=== PATIENT | female | born 1990 | race African-American/Black ===

== ENCOUNTER 2016-08-10 15:06 | Emergency (ER) | payer MEDICAID, OTHER ==
--- NOTE | 2016-08-10 16:41 | ER Document Report ---
ED GI/ - General Chief Complaint: Urinary Problem Stated Complaint: POSSIBLE UTI Mode of Arrival: Ambulatory Information source: Patient TRAVEL OUTSIDE OF THE [place] IN LAST 30 DAYS: No - HPI Patient complains to provider of: Dysuria Onset: Yesterday Notes: 08/10/16 16:39 Patient arrives with complaints of dysuria and frequent urination. Patient is 21 weeks , she states that she thought she was having a urinary tract infection a few weeks ago, she contacted her physician who wrote her for amoxicillin. She states that amoxicillin typically does not help her urinary tract infections. States that she also always gets a yeast infection after being on antibiotics, but the physician did not write her for in the Diflucan. She states that she was feeling somewhat better until yesterday she started having dysuria and urinary frequency again. She does complain of a mild odor. She denies any vaginal bleeding. She denies any abdominal pain. She denies any nausea, vomiting, diarrhea. No flank pain. No chest pain or shortness of breath. She denies any rashes. She has no other complaints at this time. - Related Data Allergies/Adverse Reactions: sulfamethoxazole [From Septra] Allergy (Mild, Verified 08/10/16 15:30) trimethoprim [From Septra] Allergy (Mild, Verified 08/10/16 15:30) Past Medical History - Social History Smoking Status: Unknown if Ever Smoked Family History: Reviewed & Not Pertinent Patient has suicidal ideation: No Patient has homicidal ideation: No - Past Medical History Cardiac Medical History: Denies: Hx Coronary Artery Disease, Hx Heart Attack, Hx Hypertension Pulmonary Medical History: Denies: Hx Asthma, Hx Bronchitis, Hx COPD, Hx Pneumonia Neurological Medical History: Denies: Hx Cerebrovascular Accident, Hx Seizures Renal/ Medical History: Denies: Hx Peritoneal Dialysis Musculoskeltal Medical History: Denies Hx Arthritis - Immunizations Hx Diphtheria, Pertussis, Tetanus Vaccination: Yes Review of Systems - Review of Systems -: Yes All other systems reviewed and negative Physical Exam - Vital signs Vitals: Temp Pulse Resp BP Pulse Ox 98.9 F 90 16 133/86 H 98 08/10/16 15:30 08/10/16 15:30 08/10/16 15:30 08/10/16 15:30 08/10/16 15:30 - Notes Notes: GENERAL: alert, cooperative, nontoxic, no distress. HEAD: normocephalic, atraumatic EYES: conjunctiva pink without discharge, no external redness or swelling. EARS: no external swelling, no external redness NOSE: atraumatic, no external swelling MOUTH/THROAT: mucous membranes moist and pink, posterior pharynx without erythema, swelling, exudate. No trismus or drooling. NECK: soft, supple, full range of motion, no meningismus. CHEST: no distress, lungs clear and equal throughout. No wheezing, rales, rhonchi. CARDIAC: regular rate and rhythm, no murmur, normal capillary refill, normal pulses. No peripheral edema noted. ABDOMEN: Soft, nontender. Gravid abdomen BACK: full range of motion, no CVA tenderness. EXTREMITIES: full range of motion of all extremities. No redness, no swelling. NEURO: alert and oriented -3, no focal deficits, full range of motion of all extremities. PYSCH: appropriate mood, affect. Patient is cooperative. SKIN: pink, warm, dry, no rash. - Genitourinary Notes: Declined at this time. Course - Re-evaluation Re-evalutation: 08/10/16 16:41 Patient declines a pelvic exam at this time. 08/10/16 17:26 Patient is nontoxic. This time. Urine shows yeast and signs of urinary tract infection. The patient has no fever and no CVA tenderness. She has no abdominal tenderness. Patient will be placed on Macrobid. The patient will have a urine culture obtained. Patient was instructed to use [id number] Monistat for the yeast infection as Diflucan's safety during is unclear. I instructed her to follow up with her RADIOLOGIST [facility] OF [facility] at the next available appointment for reevaluation. Follow-up sooner for increased pain, fever, persistent vomiting, I fever, or any further concerns. The patient is noted to have elevated blood pressure during today's emergency department visit. The patient was informed of this finding. The patient was instructed that this may be related to pre-hypertension and requires further evaluation with a primary care provider. The patient has no hypertensive symptoms at this time. The patient's emergency department workup and current diagnosis were explained to the patient and or family. Follow-up instructions were provided. Medications if prescribed were discussed. Instructions for when to return to the emergency department including specific worrisome symptoms were discussed with the patient and/or family. - Vital Signs Vital signs: Temp Pulse Resp BP Pulse Ox 98.9 F 90 16 133/86 H 98 08/10/16 15:30 08/10/16 15:30 08/10/16 15:30 08/10/16 15:30 08/10/16 15:30 - Laboratory Laboratory results interpreted by me: 08/10/16 16:45 Urine Protein 100 H Urine Glucose (UA) >=500 H Urine Blood MODERATE H Ur Leukocyte Esterase LARGE H Discharge - Discharge Clinical Impression: Yeast infection involving the vagina and surrounding area Urinary tract infection Qualifiers: Urinary tract infection type: acute cystitis Hematuria presence: without hematuria Qualified Code(s): N30.00 - Acute cystitis without hematuria Condition: Stable Disposition: HOME, SELF-CARE Instructions: Nitrofurantoin ([facility]), Urinary Tract Infection ([facility]), Vaginal Yeast Infection ([facility]) Additional Instructions: Take medications as prescribed. Drink lots of fluids. Use [id number] Monistat for yeast infection. Follow up with her RADIOLOGIST [facility] next week for reevaluation. Follow-up sooner for increased pain, fever, abdominal pain, nausea, vomiting, flank pain, or any further concerns. Your blood pressure was elevated during today's visit. Have this rechecked with your doctor. Prescriptions: Nitrofurantoin Monohyd/M-Cryst [Macrobid 100 mg Capsule] 100 mg PO BID #10 capsule Forms: Elevated Blood Pressure
[2016-08-10 17:15] LABS: APPEARANCE,URINE TURBID; BILIRUBIN,URINE NEGATIVE (NEGATIVE); GLUCOSE, URINE >=500 mg/dL (NEGATIVE); KETONES,URINE NEGATIVE (NEGATIVE); LEUKOCYTE ESTERASE,URINE LARGE (NEGATIVE); NITRITE,URINE NEGATIVE (NEGATIVE); PROTEIN,URINE 100 mg/dL (NEGATIVE); URINE SPECIFIC GRAVITY 1.015; UROBILINOGEN,URINE NEGATIVE mg/dL (<2.0)
[2016-08-10 17:35] VITALS: BP 111/67
== END 2016-08-10 17:35 | disposition home or self-care (01) ==
LOC: ER 15:06
DX: O23.12 Infections of bladder in pregnancy, second trimester (principal); O98.812 Other maternal infectious and parasitic diseases complicating pregnancy, second trimester; B37.3 Candidiasis of vulva and vagina; O26.892 Other specified pregnancy related conditions, second trimester; R03.0 Elevated blood-pressure reading, without diagnosis of hypertension; Z3A.21 21 weeks gestation of pregnancy; Z88.1 Allergy status to other antibiotic agents; O23.02 Infections of kidney in pregnancy, second trimester
CPT/HCPCS: 81001; 87086; 87088; 87186; 99283

== ENCOUNTER 2016-10-17 10:42 | Emergency (ER) | payer MEDICAID ==
--- NOTE | 2016-10-17 11:12 | ER Document Report ---
ED Medical Screen (RME) - General Chief Complaint: Shortness Of Breath Stated Complaint: DIFFICULTY BREATHING Time Seen by Provider: 10/17/16 11:05 Notes: 25-year-old female patient is 31 weeks . 2 hours ago had sudden onset of dyspnea. She is breathing quite rapidly. Lungs are clear. She has no history of anxiety disorder or respiratory problems in the past. No recent travel. Does not smoke. I have greeted and performed a rapid initial assessment of this patient. A comprehensive ED assessment and evaluation of the patient, analysis of test results and completion of the medical decision making process will be conducted by additional ED providers. TRAVEL OUTSIDE OF THE [place] IN LAST 30 DAYS: No - Related Data Allergies/Adverse Reactions: sulfamethoxazole [From Septra] Allergy (Mild, Verified 10/17/16 10:46) trimethoprim [From Septra] Allergy (Mild, Verified 10/17/16 10:46) Past Medical History - Past Medical History Cardiac Medical History: Denies: Hx Coronary Artery Disease, Hx Heart Attack, Hx Hypertension Pulmonary Medical History: Denies: Hx Asthma, Hx Bronchitis, Hx COPD, Hx Pneumonia Neurological Medical History: Denies: Hx Cerebrovascular Accident, Hx Seizures Renal/ Medical History: Denies: Hx Peritoneal Dialysis Musculoskeltal Medical History: Denies Hx Arthritis - Immunizations Hx Diphtheria, Pertussis, Tetanus Vaccination: Yes
--- NOTE | 2016-10-17 12:02 | ER Document Report ---
ED Respiratory Problem - General Chief Complaint: Shortness Of Breath Stated Complaint: DIFFICULTY BREATHING Time Seen by Provider: 10/17/16 11:05 Notes: The patient is a 25-year-old female, 31 weeks , presents with 2 hours of sudden onset shortness of breath. She was at rest when this started. No history of asthma or panic attacks. She denies leakage of fluids, abdominal pain or vaginal bleeding. Denies fevers, cough, hemoptysis, leg swelling, chest pain, back pain, recent travel or urinary symptoms. TRAVEL OUTSIDE OF THE [place] IN LAST 30 DAYS: No - Related Data Allergies/Adverse Reactions: sulfamethoxazole [From ] Allergy (Mild, Verified 10/17/16 10:46) trimethoprim [From Decra] Allergy (Mild, Verified 10/17/16 10:46) Past Medical History - General Information source: Patient - Social History Smoking Status: Never Smoker Family History: Reviewed & Not Pertinent Patient has suicidal ideation: No Patient has homicidal ideation: No - Past Medical History Cardiac Medical History: Denies: Hx Coronary Artery Disease, Hx Heart Attack, Hx Hypertension Pulmonary Medical History: Denies: Hx Asthma, Hx Bronchitis, Hx COPD, Hx Pneumonia Neurological Medical History: Denies: Hx Cerebrovascular Accident, Hx Seizures Renal/ Medical History: Denies: Hx Peritoneal Dialysis Musculoskeltal Medical History: Denies Hx Arthritis - Immunizations Hx Diphtheria, Pertussis, Tetanus Vaccination: Yes Review of Systems - Review of Systems Notes: REVIEW OF SYSTEMS: CONSTITUTIONAL: -fevers, -chills EENT: -eye pain, -difficulty swallowing, -nasal congestion CARDIOVASCULAR:-chest pain, -syncope. RESPIRATORY: -cough, +SOB GASTROINTESTINAL: -abdominal pain, - nausea, -vomiting, -diarrhea GENITOURINARY: -dysuria, -hematuria MUSCULOSKELETAL: -back pain, -neck pain SKIN: -rash or skin lesions. HEMATOLOGIC: -easy bruising or bleeding. LYMPHATIC: -swollen, enlarged glands. NEUROLOGICAL: -altered mental status or loss of consciousness, -headache, - neurologic symptoms PSYCHIATRIC: -anxiety, -depression. ALL OTHER SYSTEMS REVIEWED AND NEGATIVE. Physical Exam - Vital signs Vitals: Pulse Resp 90 14 10/17/16 10:50 10/17/16 10:50 - Notes Notes: PHYSICAL EXAMINATION: GENERAL: Well-appearing, well-nourished and in no acute distress. HEAD: Atraumatic, normocephalic. EYES: Pupils equal round and reactive to light, extraocular movements intact, sclera anicteric, conjunctiva are normal. ENT: nares patent, oropharynx clear without exudates. Moist mucous membranes. NECK: Normal range of motion, supple without lymphadenopathy LUNGS: Tachypneic, labored breathing, breath sounds clear to auscultation bilaterally and equal. No wheezes rales or rhonchi. HEART: Regular rate and rhythm without murmurs ABDOMEN: Soft, nontender, normoactive bowel sounds. No guarding, no rebound. No masses appreciated. EXTREMITIES: Normal range of motion, no pitting or edema. No cyanosis. NEUROLOGICAL: Cranial nerves grossly intact. Normal speech, normal gait. Normal sensory and motor exams. PSYCH: Normal mood, normal affect. SKIN: Warm, Dry, normal turgor, no rashes or lesions noted. Course - Re-evaluation Re-evalutation: High concern for PE with sudden onset of shortness of breath, tachypnea, and . Spoke to patient about risks and benefits of CT scan and she understands. She consents to CTA to assess for PE. CTA does not show any evidence of PE. Rest of labs are unremarkable. She is resting comfortably and is now in no acute respiratory distress. Pt on the monitor is breathing 18 times/minute for several hours. When I enter the room, she begins to increase her breathing to 27 times/min. This is less likely an acute medical cause for the tachypnea. Will discharge patient home with follow- up at OB. Given strict return precautions and she understands. - Vital Signs Vital signs: Temp Pulse Resp BP Pulse Ox 90 29 H 124/84 99 10/17/16 15:00 10/17/16 15:01 10/17/16 15:00 10/17/16 15:01 - Laboratory Result Diagrams: 10/17/16 12:05 10/17/16 12:05 Laboratory results interpreted by me: 10/17/16 10/17/16 10/17/16 12:05 12:05 12:05 RBC 3.56 L Hgb 10.8 L Hct 32.4 L D-Dimer 1.11 H Carbon Dioxide 21 L Creatinine 0.47 L Glucose 111 H - Diagnostic Test Radiology reviewed: Image reviewed, Reports reviewed Radiology results interpreted by me: CTA Chest: No PE. - EKG Interpretation by Me EKG shows normal: Sinus rhythm, [place], Intervals, QRS Complexes, ST-T Waves Rate: Normal Discharge - Discharge Clinical Impression: Dyspnea Qualifiers: Dyspnea type: shortness of breath Qualified Code(s): R06.02 - Shortness of breath Condition: Stable Disposition: HOME, SELF-CARE Additional Instructions: SHORTNESS OF BREATH OR DYSPNEA: You were evaluated for shortness of breath, or dyspnea. Dyspnea has many causes, and some are more serious than others. Sometimes it's impossible to diagnose the cause of dyspnea with the tests that are available on an emergency basis. Based on our evaluation today, you do not need hospitalization now. We found no evidence of pneumonia, collapsed lung, blood clots in the lung, tumors , or heart failure. Causes of non-specific dyspnea can include asthma or bronchospasm, hyperventilation, emotional distress, heart disease, emphysema, fibrosis of the lung, and stiffness of the chest wall. In healthy individuals with a single episode, it's sometimes reasonable to do nothing but wait to see if the problem occurs again. Additional tests used to evaluate dyspnea can include cardiac stress testing, echocardiography, pulmonary function testing, CAT scan of the chest, bronchoscopy or pulmonary biopsy. Return if shortness of breath persists or worsens, or if you develop chest pain, fever, cough, confusion, or fainting. NORMAL EXAM AND WORKUP: At this time, your examination and workup show no significant abnormality. No significant abnormal physical findings were noted. All laboratory, EKG, and imaging (x-ray, CT scans, ultrasound) studies that were ordered show no significant abnormality. Although your examination and all studies that were ordered showed no significant abnormal finding, there are no examinations and no studies that are 100% accurate. There is always the possibility that some abnormality could exist and not be detected with physical examination or within the limits and capabilities of laboratory and other studies. You should return or follow up as you were instructed on your visit today for further evaluation if your symptoms do not resolve. FOLLOW-UP CARE: If you have been referred to a physician for follow-up care, call the physician s office for an appointment as you were instructed or within the next two days. If you experience worsening or a significant change in your symptoms, notify the physician immediately or return to the Emergency Department at any time for re-evaluation. Referrals: GELY ALLRED MD [Primary Care Provider] - Follow up as needed ONEIL MERCHANT MD [ACTIVE STAFF] - Follow up as needed
[2016-10-17 12:25] LABS: ABSOLUTE EOSINOPHILS # (AUTO) 0.1 10^3/uL (0.0-0.6); ABSOLUTE LYMPHOCYTES (AUTO) 1.1 10^3/uL (0.5-4.7); ABSOLUTE MONOCYTES (AUTO) 0.5 10^3/uL (0.1-1.4); ABSOLUTE NEUT (AUTO) 4.7 10^3/uL (1.7-8.2); BASOPHILS % (AUTO) 0.2 % (0-2); EOSINOPHILS % (AUTO) 2.1 % (0-6); HEMATOCRIT 32.4 % (36.0-47.0); HEMOGLOBIN 10.8 g/dL (12.0-15.5); MEAN CORPUSCULAR HEMOGLOBIN 30.3 pg (27.0-33.4); MEAN CORPUSCULAR HGB CONC 33.3 g/dL (32.0-36.0); MEAN CORPUSCULAR VOLUME 91 fl (80-97); MONOCYTES % (AUTO) 7.4 % (3-13); RED BLOOD COUNT 3.56 10^6/uL (3.72-5.28); RED CELL DISTRIBUTION WIDTH 12.5 % (11.5-14.0); SEGMENTED NEUTROPHILS % (AUTO) 73.3 % (42-78); WHITE BLOOD COUNT 6.4 10^3/uL (4.0-10.5)
--- NOTE | 2016-10-17 12:30 | RADIOLOGY REPORT (SQ) ---
EXAM DESCRIPTION: CHEST SINGLE VIEW portable COMPLETED DATE/TIME: 10/17/2016 12:17 pm REASON FOR STUDY: dyspnea COMPARISON: 2008 NUMBER OF VIEWS: One view. TECHNIQUE: Single frontal radiographic view of the chest acquired. LIMITATIONS: None. FINDINGS: LUNGS AND PLEURA: No opacities, masses or pneumothorax. No pleural effusion. MEDIASTINUM AND HILAR STRUCTURES: No masses. Contour normal. HEART AND VASCULAR STRUCTURES: Heart is prominent, but stable. BONES: No acute findings. HARDWARE: None in the chest. OTHER: No other significant finding. IMPRESSION: Nothing acute from prior examination. TECHNICAL DOCUMENTATION: JOB ID: [id number] 1584 [employer]- All Rights Reserved
[2016-10-17 12:42] LABS: ALANINE AMINOTRANSFERASE 28 U/L (9-52); ALBUMIN 3.5 g/dL (3.5-5.0); ALKALINE PHOSPHATASE 98 U/L (38-126); ANION GAP 9 (5-19); ASPARTATE AMINO TRANSFERASE 18 U/L (14-36); BILIRUBIN,DIRECT 0.2 mg/dL (0.0-0.4); BILIRUBIN,TOTAL 0.6 mg/dL (0.2-1.3); BLOOD UREA NITROGEN 8 mg/dL (7-20); CALCIUM 9.1 mg/dL (8.4-10.2); CARBON DIOXIDE 21 mmol/L (22-30); CHLORIDE 107 mmol/L (98-107); CREATININE RESULT 0.47 mg/dL (0.52-1.25); GLUCOSE 111 mg/dL (75-110); POTASSIUM 3.8 mmol/L (3.6-5.0); SODIUM 137.1 mmol/L (137-145); TOTAL PROTEIN 6.8 g/dL (6.3-8.2)
--- NOTE | 2016-10-17 14:44 | RADIOLOGY REPORT (SQ) ---
EXAM DESCRIPTION: CTA CHEST COMPLETED DATE/TIME: 10/17/2016 2:23 pm REASON FOR STUDY: SOB, , tachypneic, elevated d-dimer COMPARISON: Chest films 10/17/2016 TECHNIQUE: CT scan of the chest performed using helical scanning technique with dynamic intravenous contrast injection. Images reviewed with lung, soft tissue and bone windows. Reconstructed coronal and sagittal MPR images reviewed. Additional 3 dimensional post-processing performed to develop Maximal Intensity Projection images (NE P). All images stored on PACS. Patient is 31 weeks . The abdomen and pelvis was shielded with lead All CT scanners at this facility use dose modulation, iterative reconstruction, and/or weight based d osing when appropriate to reduce radiation dose to as low as reasonably achievable (ALARA). [facility]: Dose Right [facility]: CareDose [facility]: Dose Right [facility]: Teradose 4D [facility]: StepsAway CONTRAST TYPE AND DOSE: contrast/concentration: Isovue 370.00 mg/ml; Total Contrast Delivered: 72.0 ml; Total Saline Delivered: 100.0 ml RENAL FUNCTION: Creatinine 0.47 RADIATION DOSE: Up-to-date CT equipment and radiation dose reduction techniques were employed. CTDIv ol: 13.2 - 14.4 mGy. DLP: 362 mGy-cm. . LIMITATIONS: None. FINDINGS: LUNGS AND PLEURA: No masses, infiltrates, pneumothorax. No pleural effusions, calcificati ons. AORTA AND GREAT VESSELS: No aneurysm or dissection. HEART: No pericardial effusion. Mild cardiomegaly PULMONARY ARTERIES: No emboli visualized in the main pulmonary arteries or the segmental branches. HILAR AND MEDIASTINAL STRUCTURES: No identified masses or abnormal nodes. HARDWARE: None in the chest. UPPER ABDOMEN: No significant findings. Limited exam. THYROID AND OTHER SOFT TISSUES: No masses. No adenopathy. BONES: No acute or significant finding. 3D MIPS: Confirm above findings. OTHER: No other significant finding. IMPRESSION: NORMAL CTA OF THE CHEST. NO PULMONARY EMBOLI. TECHNICAL DOCUMENTATION: JOB ID: [id number] Quality ID # [id number]: Final reports with documentation of one or more dose reduction techniques (e.g., Au tomated exposure control, adjustment of the mA and/or kV according to patient size, use of iterative reconstruction technique) 2010 [employer]- All Rights Reserved
[2016-10-17 15:07] VITALS: BP 124/84
== END 2016-10-17 15:31 | disposition home or self-care (01) ==
LOC: ER 10:42
DX: R06.02 Shortness of breath (principal); Z3A.31 31 weeks gestation of pregnancy
CPT/HCPCS: 36415; 71010; 71275; 80053; 85025; 85379; 99285

== ENCOUNTER 2016-11-30 16:40 | Outpatient (CLI) | payer MEDICAID ==
--- NOTE | 2016-11-30 17:26 | Non Stress Test Report ---
Non Stress Test Datetime Report Generated by CPN: 11/30/2016 17:26 DEMOGRAPHIC EGA NST: 37.4 INDICATION Indication for Study: Ordered by Provider MONITORING Monitor Explained: Monitor Explained; Test Explained; Patient Verbalized Understanding Time on Monitor: 11/30/2016 17:00 Time off Monitor: 11/30/2016 17:25 NST Duration: 25 NST INTERVENTIONS NST Interventions: None Physician Notified NST: Dr. Negro BABY A: [id number] BABY A Movement : Present Contraction Frequency : occasional FHR Baseline : 150 Accelerations : 15X15 Decelerations : None Variability : Moderate 6-25bpm NST Review: Meets Criteria for Reactive NST NST Review and Verified By : Mery HERNANDEZ NST Results: Reactive NST REPORT Report Trigger: Send Report
== END 2016-11-30 17:27 | disposition home or self-care (01) ==
LOC: LC 16:40
PROVIDERS: ATTEND Student in an Organized Health Care Education/Training Program
PROC: 4A1HXCZ Monitoring of Products of Conception, Cardiac Rate, External Approach (ICD-10-PCS; principal; 2016-11-30)
DX: O47.1 False labor at or after 37 completed weeks of gestation (principal); Z3A.37 37 weeks gestation of pregnancy
CPT/HCPCS: 59025

== ENCOUNTER 2016-12-05 17:35 | Inpatient (IN) | payer MEDICAID ==
[~2016-12-05 17:35] MED LIST: METOCLOPRAMIDE HCL INJ/PF 10 MG/2 ML SDV ONE
[2016-12-05] MEDS ORDERED: MISOPROSTOL 0.2 MG TABLET ONE ×3 (18:07→22:30)
[2016-12-05] MEDS ORDERED: OXYTOCIN/NORMAL SALINE 0 UNIT/0 ML RTUINJ ONE ×2 (18:07→18:13)
[2016-12-05] MEDS ORDERED: PENICILLIN G-K 5 MILLION UNIT VIAL ONE (18:07)
[2016-12-05] MEDS ORDERED: FENTANYL CITRATE INJ/PF 100 MCG/2 ML AMPUL ONE ×3 (18:12→22:15)
[2016-12-05] MEDS ORDERED: LIDOCAINE 1% INJ-PF (10 MG/ML) 30 ML SDV ONE (18:13)
[2016-12-05 18:35] LABS: ABSOLUTE EOSINOPHILS # (AUTO) 0.1 10^3/uL (0.0-0.6); ABSOLUTE LYMPHOCYTES (AUTO) 0.9 10^3/uL (0.5-4.7); ABSOLUTE MONOCYTES (AUTO) 0.8 10^3/uL (0.1-1.4); ABSOLUTE NEUT (AUTO) 5.8 10^3/uL (1.7-8.2); BASOPHILS % (AUTO) 0.3 % (0-2); EOSINOPHILS % (AUTO) 0.8 % (0-6); HEMATOCRIT 33.7 % (36.0-47.0); HEMOGLOBIN 11.4 g/dL (12.0-15.5); HGB HCT DIFFERENCE 0.5; LYMPHOCYTES % (AUTO) 12.2 % (13-45); MEAN CORPUSCULAR HEMOGLOBIN 30.2 pg (27.0-33.4); MEAN CORPUSCULAR HGB CONC 33.8 g/dL (32.0-36.0); MEAN CORPUSCULAR VOLUME 89 fl (80-97); MONOCYTES % (AUTO) 10.5 % (3-13); RED BLOOD COUNT 3.78 10^6/uL (3.72-5.28); RED CELL DISTRIBUTION WIDTH 12.7 % (11.5-14.0); SEGMENTED NEUTROPHILS % (AUTO) 76.2 % (42-78); WHITE BLOOD COUNT 7.6 10^3/uL (4.0-10.5)
[2016-12-05] MEDS ORDERED: FENTANYL/BUPIVACAINE/NS/PF 200 MCG/100 ML RTUINJ EPI ONE (19:39)
[2016-12-05] MEDS ORDERED: EPHEDRINE SULFATE INJ 50 MG/1 ML AMPULE ONE ×2 (19:39→22:30)
[2016-12-05] MEDS ORDERED: PHENYLEPHRINE HCL INJ/PF 10 MG/1 ML SDV ONE (19:39)
[2016-12-05] MEDS ORDERED: BUPIVACAINE HCL 0.25 % INJ/PF (2.5 MG/1 ML) 30 ML VIAL ONE (19:40)
--- NOTE | 2016-12-05 19:43 | L&D Progress Notes ---
PROGRESS NOTES Datetime Report Generated by CPN: 12/05/2016 19:43 PROGRESS NOTE Procedures: Artificial ROM; Intrauterine Pressure Catheter Plan: Continue Present Management Comment: IUPC placed as uncertain if late decels initially--after iupc c/w earlies. FS came from 169 to 102 with 3 units novaog. Attempting to get ivfs in for epidural. Cont gbs prophylaxis. VAGINAL EXAM Dilatation: 8 Effacement: 90 Station: 0 Contractions: every 2 min MEMBRANES Membranes: Intact Amniotic Fluid Color: Clear FETUS A Estimated Weight (gm): 3800 Presentation: Vertex SIGNATURE SIGNATURE: [id number];[id number] SIGNATURE: [id number] Signature: with User ID: [email or web address]
--- NOTE | 2016-12-05 22:10 | L&D Progress Notes ---
PROGRESS NOTES Datetime Report Generated by CPN: 12/05/2016 22:10 PROGRESS NOTE Impression: Arrest of Dilatation/Descent Impression Other: intermittent late decels Informed Consent Obtained: Section Delivery Comment: Pt now with some swelling of cervix. FS 108. Discussed intermittent lates and arrest of labor-discused r/b/a of and pt wishes to proceed. VAGINAL EXAM Dilatation: 8 Effacement: 90 Station: -1 FETUS A FHR Category: Category II FETUS C SIGNATURE: [id number];[id number] Signature: with User ID: [email or web address]
[2016-12-05] MEDS ORDERED: CITRIC ACID/SODIUM CITRATE ORAL SOLN 15 ML UDCUP ONE (22:13)
[2016-12-05] MEDS ORDERED: LIDOCAINE 2% INJ-PF (20 MG/ML) 10 ML AMPUL ONE (22:14)
[2016-12-05] MEDS ORDERED: CEFAZOLIN 2 GM/D5W RTU 2 GM/50 ML RTUPB IV ONE (22:14)
[2016-12-05] MEDS ORDERED: MIDAZOLAM 2 MG/2 ML INJ ONE (22:15)
[2016-12-05] MEDS ORDERED: OXYTOCIN 10 UNIT/ML VIAL ONE ×2 (22:15→23:08)
[2016-12-05] MEDS ORDERED: ACETAMINOPHEN 100 ML IV ONE (22:15)
[2016-12-05] MEDS ORDERED: OXYTOCIN/NORMAL SALINE 20 UNIT/1,000 ML RTUINJ ONE (22:15)
[2016-12-05] MEDS ORDERED: METHYLERGONOVINE MALEATE INJ/PF 0.2 MG/1 ML AMPULE ONE ×2 (22:16→22:30)
[2016-12-05] MEDS ORDERED: ONDANSETRON HCL INJ/PF 4 MG/2 ML SDV ONE (22:29)
[2016-12-05] MEDS ORDERED: GENTAMICIN SULFATE INJ 80 MG/2 ML VIAL ONE (22:30)
[2016-12-05] MEDS ORDERED: CLINDAMYCIN 900 MG/D5W RTU 50 ML IV ONE (22:30)
[2016-12-05] MEDS ORDERED: MORPHINE SULFATE 10 MG/ML INJ IV PRN (23:13)
[2016-12-05] MEDS ORDERED: OXYCODONE-ACETAMINOPHEN 5-325 MG TABLET PO PRN ×2 (23:13)
[2016-12-05] MEDS ORDERED: FENTANYL CITRATE INJ/PF 100 MCG/2 ML AMPUL IV PRN ×3 (23:13)
[2016-12-05] MEDS ORDERED: DIPHENHYDRAMINE HCL 50 MG/ML VIAL IV PRN (23:13)
[2016-12-05] MEDS ORDERED: ONDANSETRON HCL INJ/PF 4 MG/2 ML SDV IV PRN (23:13)
[2016-12-05] MEDS ORDERED: MEPERIDINE HCL/PF INJ 25 MG/1 ML DISP.SYRIN IV PRN (23:13)
[2016-12-05] MEDS ORDERED: PROMETHAZINE HCL INJ 25 MG/1 ML VIAL IV PRN ×2 (23:13)
[2016-12-06] MEDS ORDERED: MEPERIDINE HCL/PF INJ 25 MG/1 ML DISP.SYRIN ONE (00:08)
[2016-12-06] MEDS ORDERED: SIMETHICONE 80 MG TAB.CHEW PO PRN (00:34)
[2016-12-06] MEDS ORDERED: ACETAMINOPHEN 325 MG TABLET PO PRN (00:34)
[2016-12-06] MEDS ORDERED: PROMETHAZINE HCL INJ 25 MG/1 ML VIAL IV PRN (00:34)
[2016-12-06] MEDS ORDERED: HYDROMORPHONE HCL INJ/PF 2 MG/ML AMPULE IV PRN ×3 (00:34→00:44)
[2016-12-06] MEDS ORDERED: MEASLES,MUMPS&RUBELLA VACC/PF 0.5 ML VIAL SUBCUT PRN (00:34)
[2016-12-06] MEDS ORDERED: RINGERS SOLUTION,LACTATED 1,000 ML IV PRN (00:34)
[2016-12-06] MEDS ORDERED: OXYTOCIN/NORMAL SALINE 20 UNIT/1,000 ML RTUINJ IV PRN (00:34)
[2016-12-06] MEDS ORDERED: OXYCODONE-ACETAMINOPHEN 5-325 MG TABLET PO PRN (00:34)
[2016-12-06] MEDS ORDERED: DIPH/PERTUSS(ACELL)/TETANUS VAC/PF 0.5 ML SYR (>=10YO) IM PRN (00:34)
--- NOTE | 2016-12-06 00:52 | OPERATIVE REPORT E ---
Operative Report NAME: KATI MERINO : 1990 AGE: 26Y DATE OF SURGERY: ROOM: LR200 PREOPERATIVE DIAGNOSIS: Term intrauterine with arrest of labor, chorioamnionitis, category 2 heart tones, type 1 diabetes. POSTOPERATIVE DIAGNOSIS: Term intrauterine with arrest of labor, chorioamnionitis, category 2 heart tones, type 1 diabetes. PROCEDURE PERFORMED: Primary low transverse cervical section. SURGEON: ROSAS RADFORD M.D. ANESTHESIA: Epidural which was bolus. ESTIMATED BLOOD LOSS: 500 mL. SPECIMEN TO PATHOLOGY: Placenta. FINDINGS: Gaines male infant, occiput posterior position. Weight was 6 pounds 9 ounces. There was moulding noted of the skull. Apgars were 8 and 9. The uterus and fallopian tubes appeared normal. The ovaries were not visualized as the uterus was left in situ during closure. DESCRIPTION OF PROCEDURE: After discussing risks, benefits, and alternatives of the procedure, and obtaining informed consent, patient was taken to the operating room with her epidural bolus. She was positioned in the dorsal supine position with a leftward tilt. She was prepped and draped in the usual standard fashion. Anesthesia was found to be adequate. A Pfannenstiel skin incision was made, abdomen was entered in layers in the standard fashion. Using the C-safe knife, a low transverse cervical incision was made. The surgeon's hand was entered into the hysterotomy incision and the vertex elevated and delivered. The shoulders and body delivered easily thereafter. Nasopharynx and oropharynx were bulb suctioned. The cord was clamped x2 and cut. The infant was handed to pediatrics who were present. The placenta was manually extracted. The uterus was massaged but left in situ. The hysterotomy incision was closed with 0 Monocryl in a running-locked fashion. Hemostasis was observed. The pelvis was irrigated and hemostasis again assured. A layer of Surgicel was placed over the hysterotomy incision to help with any peritoneal oozing that might occur. The peritoneum was then closed with 2-0 Vicryl in a pursestring fashion. The fascial spaces were inspected and noted to be hemostatic. The fascia was closed with #1 Vicryl. The subcutaneous spaces were irrigated and hemostasis achieved with cautery. The skin was closed in a subcuticular fashion with 3-0 Vicryl. An OpSite dressing was applied. Cytotec 1000 mcg was placed per rectum as the patient had chorioamnionitis and there was a concern for possible uterine atony. The patient's blood glucose was 86 at the end of the case and she was taken to recovery in stable condition. All sponge, needle, lap, and instrument counts were correct x2. DICTATING PHYSICIAN: ROSAS RADFORD M.D. [id number] PHY#: [id number] ID: [id number] JOB#: [id number] ACCT: [id number] cc:ROSAS RADFORD M.D. >
[2016-12-06] MEDS ORDERED: KETOROLAC TROMETHAMINE INJ/PF 30 MG/1 ML SDV ONE (01:44)
[2016-12-06] MEDS: KETOROLAC TROMETHAMINE INJ/PF 30 MG/1 ML SDV IV PRN ×2 (01:47→08:31)
--- NOTE | 2016-12-06 02:29 | Admission Physical ---
Datetime Report Generated by CPN: 12/06/2016 02:29 CURRENT ADMISSION Hx Assessment: The History has been Reviewed and is Current Chief Complaint: Uterine Contractions Indication for Induction: Not Applicable Admit Plan: Admit to Unit; Initiate Labor Protocol ALLERGIES Medication Allergies: Yes Medication Allergies: sulfamethoxazole/NH (11/30/2016); trimethoprim/NH (11/30/2016) Medication Allergies: sulfamethoxazole/NH (10/17/2016); trimethoprim/NH (10/17/2016) Medication Allergies: sulfamethoxazole/NH (08/10/2016); trimethoprim/NH (08/10/2016) Latex: No Latex Allergies Food Allergies: NA Environmental Allergies: NA OBSTETRICAL HISTORY EDC: 12/17/2016 00:00 : 2 Para: 0 Term: 0 : 0 SAB: 1 IAB: 0 Ectopic: 0 Livin Cesareans: 0 VBACs: 0 Multiple Births: 0 Gestational Diabetes: No Rh Sensitization: No Incompetent Cervix: No SRINIVAS: No Infertility: No ART Treatment: No Uterine Anomaly: No IUGR: No Hx Previous C/S: No Macrosomia: No Hx Loss/Stillborn: No PIH: No Hx : No Placenta Previa/Abruption: No Depression/PP Depression: Yes PTL/PROM: No Post Hemorrhage: No Current Procedures: Ultrasound; NST Obstetrical History Comments: Echocardiogram--Normal SEE RECORDS Alcohol: No Marijuana : No Cocaine: No Other Illicit Drugs: No Cigarettes: Never Smoker. [id number] MEDICAL HISTORY Diabetes: Yes Diabetes Type: Type I - IDDM Blood Transfusion: No Pulmonary Disease (Asthma, TB): No Breast Disease: No Hypertension: No Sheltered Workshop Worker Surgery: No Heart Disease: No Hosp/Surgery: Yes Autoimmune Disorder: No Anesthetic Complications: No Kidney Disease: No Abnormal Pap Smear: No Neuro/Epilepsy: Yes Psychiatric Disorders: No Other Medical Diseases: No Hepatitis/Liver Disease: No Significant Family History: Yes Varicosities/Phlebitis: No Trauma/Violence : No Thyroid Dysfunction: No Medical History Comments: IDDM, MS--diagnosed 2014, depression--no meds, 2 eye surgeries on both R and L eyes INFECTIOUS HISTORY Gonorrhea: No Genital Herpes: Yes Chlamydia: No Tuberculosis: No Syphilis: No Hepatitis: No HIV/AIDS Exposure: No Rash or Viral Illness: No HPV: No Infectious History Comments: HSV I--no genital PHYSICAL EXAM General: Normal HEENT: Normal Neurologic: Normal Thyroid: Deferred Heart: Normal Lungs: Normal Breast: Normal Back: Normal Abdomen: Normal Genitourinary Exam: Normal Extremities: Normal DTRs: Normal Pelvic Type: Adequate Vital Signs: Reviewed VAGINAL EXAM Dilatation: 8 Dilatation: 8 Effacement: 90 Effacement: 90 Station: -1 Station: 0 Contraction Comments: every 2 min MEMBRANES Membranes: Intact Amniotic Fluid Color: Clear FETUS A EGA: 38.2 Monitoring: External US FHR- Baseline: 150 Variability: Moderate 6-25bpm Accelerations: 15X15 Decelerations: None FHR Category: Category I Estimated Weight (gm): 3800 Presentation: Vertex Admit Comment: pt janette all day, denies lof or vb, states active fetus Pt is Type I IDDM with most recent hgbA1c 6.6 on 08/23/16, has insulin pump Pt has hx of MS, no meds now, needs to restart Redif after delivery GBS +, pcn Allergies as above q. 1 hour accuchecks, insulin adjusted. admit to l _ d PLANS FOR LABOR AND DELIVERY Labor and Delivery: Plan Pain Management: Natural Other Pain Management Plans: open to options Feeding Preference: Breast Benefit of Breast Feed Discussed: Yes Circumcision: Yes INFORMED CONSENT Informed Consent Obtained: Section Delivery Assignment: Hanh Martinez MD Signature: with User ID: [email or web address] : with User ID: Carrie
--- NOTE | 2016-12-06 02:32 | Delivery Summary ---
Del Sum A-C Datetime Report Generated by CPN: 12/06/2016 02:32 DELIVERY PERSONNEL DELIVERY PERSONNEL: [phone] Delivery Doctor:: Berna Elkins MD Anesthesiologist:: Meeta Stout MD Labor and Delivery Nurse:: Deana Reyes RNtrade mark examiner Nurse:: Ricardo Cali RN Neonatal Nurse Practitioner:: CHERYL Souza Nursery Nurse:: Karina Hatch RN Nursery Nurse:: Aicha Gruber RN External Grinder Tool/FOOD SAFETY SPECIALIST: [facility] External Grinder Tool/FOOD SAFETY SPECIALIST: [facility] MATERNAL INFORMATION Delivery Anesthesia: Epidural Medications After Delivery: Pitocin Bolus-Please Comment Meds After Delivery Comment: pitocin 20 units in 1000 mL NSS x2 per c/s orders Estimated Blood Loss (ml): 500 Maternal Complications: Chorioamnionitis; Maternal Fever LABOR SUMMARY EDC: 12/17/2016 00:00 No. Babies in Womb: 1 Attempted: No Labor Anesthesia: Epidural LABOR INFORMATION Reason for Induction: Not Applicable Onset of Labor: 12/05/2016 18:00 Oxytocin: N/A Group B Beta Strep: positive Antibiotics # of Doses: 1 Antibiotics Time of Last Dose: 1830 Name of Antibiotic Given: PCN Steroids Given: None Reason Steroids Not Administered: Not Applicable MEMBRANES Membranes Rupture Method: Artificial Rupture of Membranes: 12/05/2016 19:17 Length of Rupture (hr): 3.78 Amniotic Fluid Color: Clear Amniotic Fluid Amount: Moderate Amniotic Fluid Odor: Normal STAGES OF LABOR Stage 3 hr: 0 Stage 3 min: 1 Total Time in Labor hr: 5 Total Time in Labor min: 5 VAGINAL DELIVERY Episiotomy: None Laceration Extension: N/A Laceration Type: None Laceration Repair: Not Applicable Sponge Count Correct: N/A Sharps Count Correct: N/A CSECTION DELIVERY Primary Indication: Arrest of Descent Secondary Indication: Nonreassuring Status Other Secondary Indication: Chorioamnionitis CSection Urgency: Non-Scheduled CSection Incidence: Primary Labor: Labor Elective: Nonelective CSection Incision: Lower Uterine Transverse BABY A INFORMATION Infant Delivery Date/Time: 12/05/2016 23:04 Method of Delivery: Born in Route : No : N/A Forceps: N/A Vacuum Extraction: N/A Shoulder Dystocia : No PRESENTATION/POSITION BABY A Presentation: Cephalic Cephalic Presentation: Vertex Vertex Position: Right Occipital Posterior Breech Presentation: N/A PLACENTA INFORMATION BABY A Placenta Delivery Time : 12/05/2016 23:05 Placenta Method of Delivery: Manual Removal Placenta Status: Delivered SCORES BABY A Heart Rate 1 min: >100 bpm Resp Effort 1 min: Good Cry Reflex Irritability 1 min: Cough or Sneeze or Pulls Away Muscle Tone 1 min: Active Motion Color 1 min: Blue/Pale Resuscitation Effort 1 min: Tactile Stimulation SCORE 1 MIN: 8 Heart Rate 5 min: >100 bpm Resp Effort 5 min: Good Cry Reflex Irritability 5 min: Cough or Sneeze or Pulls Away Muscle Tone 5 min: Active Motion Color 5 min: Body [employer] [place], Extremities Blue Resuscitation Effort 5 min: Tactile Stimulation SCORE 5 MIN: 9 INFANT INFORMATION BABY A Gestational Age at Delivery: 38.2 Gestational Status: Early Term- 37- 38.6 Weeks Outcome : Liveborn Condition : Stable Sex: Male IDENTIFICATION BABY A Verification Date/Time: 12/05/2016 23:11 ID Band Number: [id number] Mother's Name Verified: Yes RN Verifying Infant: SAndrew Pappas, RN Additional Verifying Personnel: A. Doherty, FOOD SAFETY SPECIALIST WEIGHT/LENGTH BABY A Infant Birthweight (gm): 2975 Infant Weight (lb): 6 Infant Weight (oz): 9 Length (in): 19.75 Infant Length (cm): 50.17 CORD INFORMATION BABY A No. Cord Vessels: 3 Nuchal Cord : N/A Cord Blood Taken: Yes-For Eval (Mom's Blood Type - or O+) Infant Suction: Mouth; Nose; Pharynx ASSESSMENT BABY A Infant Complications: None Skin to Skin: Yes Skin to Skin Time (min): 45 Senior Trial Attorney/ALS Called : No BABY B INFORMATION : N/A
[2016-12-06] MEDS ORDERED: ERTAPENEM SODIUM INJ 1 GM VIAL IV SCH (08:00)
[2016-12-06] MEDS: ERTAPENEM SODIUM 1 GM in NORMAL SALINE 50 ML IV SCH (10:06)
[2016-12-06] MEDS: PRENATAL VITAMIN W-O CA NO5/FE FUMARATE/FA CAPSULE PO SCH (10:07)
[2016-12-06] MEDS: DOCUSATE SODIUM 100 MG CAPSULE PO SCH ×2 (10:07→18:39)
--- NOTE | 2016-12-06 13:03 | PDOC PROGRESS REPORT ---
<TY VERDE - Last Filed: 12/06/16 13:02> Subjective-OB Subjective: Post Delivery Day: 26 year old. Denies any needs at this time. Pt denies complaints. She reports light bleeding, diabetic diet. Dr. Merchant managing Glucose/Insulin. Pt has not been out of bed, FC to BSD with clear yellow urine. Pt denies pain. Physical Exam (OB) Vital Signs: Temp Pulse Resp BP Pulse Ox 99.4 F 88 16 141/89 H 96 12/06/16 07:40 12/06/16 07:40 12/06/16 07:40 12/06/16 07:40 12/06/16 07:40 Intake & Output 12/05/16 12/06/16 12/07/16 06:59 06:59 06:59 Intake Total 1000 1050 Output Total 900 Balance 100 1050 - PIH/Pre-Eclampsia Clonus: Negative Headache: Absent Epigastric Pain: No Visual Changes: No - Dressing Removed: Yes Incision: Dressing Closure Type: Sutures - Bilateral Tubal Ligation Dressing Removed: No Site: Open - Lochia Lochia Amount: Small 10-25 ml Lochia Color: Rubra/Red - Abdomen Description: Soft, Round Hernia Present: No Fundal Description: Firm Fundal Height: u/u - u/2 Objective-Diagnostic Laboratory: 12/05/16 18:20 12/05/16 12/05/16 18:20 18:20 WBC 7.6 RBC 3.78 Hgb 11.4 L Hct 33.7 L MCV 89 MCH 30.2 MCHC 33.8 RDW 12.7 Plt Count 255 Seg Neutrophils % 76.2 Lymphocytes % 12.2 L Monocytes % 10.5 Eosinophils % 0.8 Basophils % 0.3 Absolute Neutrophils 5.8 Absolute Lymphocytes 0.9 Absolute Monocytes 0.8 Absolute Eosinophils 0.1 Absolute Basophils 0.0 Blood Type O POSITIVE Antibody Screen NEGATIVE Assessment and Plan(PN) - Assessment and Plan (1) Chorioamnionitis QualifierTitle: Fetus number: single or unspecified fetus Trimester: third trimester Qualified Code(s): O41.1230 - Chorioamnionitis, third trimester, not applicable or unspecified Is this a current diagnosis for this admission?: Yes (2) Delivery by emergency caesarean section Is this a current diagnosis for this admission?: Yes (3) Insulin dependent diabetes mellitus Is this a current diagnosis for this admission?: Yes - Time Spent with Patient Time with patient: Less than 15 minutes Medications reviewed and adjusted accordingly: Yes - Disposition Anticipated Discharge: Home Within: within 24 hours, within 48 hours <ONEIL MERCHANT - Last Filed: 12/06/16 13:06> Subjective-OB Subjective: Post Delivery Day: 26 year old. Denies any needs at this time Physical Exam (OB) Vital Signs: Temp Pulse Resp BP Pulse Ox 99.4 F 88 16 141/89 H 96 12/06/16 07:40 12/06/16 07:40 12/06/16 07:40 12/06/16 07:40 12/06/16 07:40 Intake & Output 12/05/16 12/06/16 12/07/16 06:59 06:59 06:59 Intake Total 1000 1050 Output Total 900 Balance 100 1050 Objective-Diagnostic Laboratory: 12/05/16 18:20 12/05/16 12/05/16 18:20 18:20 WBC 7.6 RBC 3.78 Hgb 11.4 L Hct 33.7 L MCV 89 MCH 30.2 MCHC 33.8 RDW 12.7 Plt Count 255 Seg Neutrophils % 76.2 Lymphocytes % 12.2 L Monocytes % 10.5 Eosinophils % 0.8 Basophils % 0.3 Absolute Neutrophils 5.8 Absolute Lymphocytes 0.9 Absolute Monocytes 0.8 Absolute Eosinophils 0.1 Absolute Basophils 0.0 Blood Type O POSITIVE Antibody Screen NEGATIVE Assessment and Plan(PN) - Assessment and Plan (1) Insulin dependent diabetes mellitus Is this a current diagnosis for this admission?: Yes Plan: Pt at 0.2 units basal rate on pump and then carb counting with meals. Pt still having significant hypoglycemia. Basal rate on pump decreased to 0.1units. Will continue to monitor accuchecks.
[2016-12-06] MEDS: OXYCODONE-ACETAMINOPHEN 5-325 MG TABLET PO PRN (15:08)
[2016-12-07 06:36] LABS: HEMATOCRIT 30.7 % (36.0-47.0); HEMOGLOBIN 10.5 g/dL (12.0-15.5); HGB HCT DIFFERENCE 0.8; MEAN CORPUSCULAR HEMOGLOBIN 30.9 pg (27.0-33.4); MEAN CORPUSCULAR HGB CONC 34.2 g/dL (32.0-36.0); MEAN CORPUSCULAR VOLUME 90 fl (80-97); RED CELL DISTRIBUTION WIDTH 13.1 % (11.5-14.0); WHITE BLOOD COUNT 12.1 10^3/uL (4.0-10.5)
[2016-12-07] MEDS: PRENATAL VITAMIN W-O CA NO5/FE FUMARATE/FA CAPSULE PO SCH (10:07)
[2016-12-07] MEDS: DOCUSATE SODIUM 100 MG CAPSULE PO SCH ×2 (10:07→18:39)
[2016-12-07] MEDS: ERTAPENEM SODIUM 1 GM in NORMAL SALINE 50 ML IV SCH (10:10)
[2016-12-08] MEDS: OXYCODONE-ACETAMINOPHEN 5-325 MG TABLET PO PRN (05:00)
--- NOTE | 2016-12-08 09:57 | PDOC PROGRESS REPORT ---
Subjective-OB Subjective: Post Delivery Day: 26 year old. Denies any needs at this time OOB in room, holding baby, breast feeding, finally passing gas, eating well, voiding, pain under control Physical Exam (OB) Vital Signs: Temp Pulse Resp BP Pulse Ox 98.2 F 83 16 134/85 H 99 12/08/16 08:00 12/08/16 08:00 12/08/16 08:00 12/08/16 08:00 12/08/16 08:00 Intake & Output 12/07/16 12/08/16 12/09/16 06:59 06:59 06:59 Intake Total 1050 332 Output Total 3100 Balance -2049 332 - PIH/Pre-Eclampsia DTR's: 2 + Clonus: Negative Headache: Absent Epigastric Pain: No Visual Changes: No - Dressing Removed: No Incision: Dressing Closure Type: Surgical Glue - Bilateral Tubal Ligation Dressing Removed: No Site: Open - Lochia Lochia Amount: Small 10-25 ml Lochia Color: Rubra/Red - Abdomen Description: Soft Hernia Present: No Fundal Description: Firm, Midline Fundal Height: u/u - u/2 Objective-Diagnostic Laboratory: 12/07/16 06:12 Assessment and Plan(PN) - Assessment and Plan (1) Delivery by emergency caesarean section Is this a current diagnosis for this admission?: Yes (2) Chorioamnionitis Qualifiers: Fetus number: single or unspecified fetus Trimester: third trimester Qualified Code(s): O41.1230 - Chorioamnionitis, third trimester, not applicable or unspecified Is this a current diagnosis for this admission?: Yes (3) Insulin dependent diabetes mellitus Is this a current diagnosis for this admission?: Yes - Time Spent with Patient Time with patient: Less than 15 minutes Medications reviewed and adjusted accordingly: Yes - Disposition Anticipated Discharge: Home Within: Other - home today, to call software test automation engineer on Saturday for Insulin instructions
[2016-12-08] MEDS ORDERED: BISACODYL 10 MG SUPP.RECT PR ONE (10:00)
--- NOTE | 2016-12-08 10:03 | PDOC DISCHARGE SUMMARY ---
Final Diagnosis Discharge Date: 12/08/16 - Final Diagnosis (1) Delivery by emergency caesarean section Is this a current diagnosis for this admission?: Yes (2) Chorioamnionitis Is this a current diagnosis for this admission?: Yes (3) Insulin dependent diabetes mellitus Is this a current diagnosis for this admission?: Yes Discharge Data - Discharge Medication Home Medications: Insulin Pump Controller [Snap Insulin Pump Controller] 1 unit SQ PRN PRN Oxycodone HCl/Acetaminophen [Percocet 5-325 mg Tablet] 1 tab PO Q4HP PRN #30 tablet 12/08/16 Gestational Age: 38.2 Reason(s) for Admission: Onset of Labor, Group B Strep Positive Admission Note: Diabetic on pump Procedures: NST, Ultrasound Intrapartum Procedure(s): : Low Cervical, Transverse Intrapartum Procedure Note: arrest of descent, chorio, maternal fever - Data Baby 1 Male at 1 minute: 8 at 5 minutes: 9 Weight: 2.977 kg Home with Mother: Yes Complications: No - Diagnosis Test Laboratory: Temp Pulse Resp BP Pulse Ox 98.2 F 83 16 134/85 H 99 12/08/16 08:00 12/08/16 08:00 12/08/16 08:00 12/08/16 08:00 12/08/16 08:00 12/05/16 12/07/16 18:20 06:12 RBC 3.78 3.40 L Hgb 11.4 L 10.5 L Hct 33.7 L 30.7 L - Discharge information/Instructions Discharge Activity: Activity As Tolerated, No Lifting Over 10 Pounds, No Lifting /Push/Pulling, Pelvic Rest Discharge Diet: As Tolerated, Diabetic Disposition: HOME, SELF-CARE Follow up with: [facility] in: 1, Weeks
[2016-12-08] MEDS: DOCUSATE SODIUM 100 MG CAPSULE PO SCH ×2 (10:52→17:43)
[2016-12-08] MEDS: PRENATAL VITAMIN W-O CA NO5/FE FUMARATE/FA CAPSULE PO SCH (10:52)
[2016-12-08] MEDS: ERTAPENEM SODIUM 1 GM in NORMAL SALINE 50 ML IV SCH (10:52)
[2016-12-08 16:12] VITALS: BP 125/81
== END 2016-12-08 18:43 | disposition home or self-care (01) | DRG 765 ==
LOC: LC 17:35 → LR 18:02 → 2N 12-06 01:55
PROVIDERS: ADMIT Specialist; ATTEND Specialist
PROC: 10D00Z1 Extraction of Products of Conception, Low, Open Approach (ICD-10-PCS; principal; 2016-12-05)
PROC: 10H07YZ Insertion of Other Device into Products of Conception, Via Natural or Artificial Opening (ICD-10-PCS; 2016-12-05)
PROC: 4A1H7CZ Monitoring of Products of Conception, Cardiac Rate, Via Natural or Artificial Opening (ICD-10-PCS; 2016-12-05)
DX: O62.1 Secondary uterine inertia (principal); O24.02 Pre-existing type 1 diabetes mellitus, in childbirth; O41.1230 Chorioamnionitis, third trimester, not applicable or unspecified; O75.2 Pyrexia during labor, not elsewhere classified; O98.52 Other viral diseases complicating childbirth; E10.649 Type 1 diabetes mellitus with hypoglycemia without coma; O76 Abnormality in fetal heart rate and rhythm complicating labor and delivery; O99.824 Streptococcus B carrier state complicating childbirth; B00.9 Herpesviral infection, unspecified; Z96.41 Presence of insulin pump (external) (internal); Z3A.38 38 weeks gestation of pregnancy; Z37.0 Single live birth; Z79.4 Long term (current) use of insulin
CPT/HCPCS: 1961; 36415; 82962; 85025; 85027; 86592; 86850; 86900; 86901; 88307; 94799; J0131; J0690; J1335; J1580; J1885; J2175; J2210; J2250; J2370; J2405; J2540; J2590; J2765; J3010; J3490; J7120

== ENCOUNTER 2017-03-15 05:23 | Emergency (ER) | payer MEDICAID ==
--- NOTE | 2017-03-15 06:00 | ER Document Report ---
ED Medical Screen (RME) - General Chief Complaint: Upper Abdominal Pain Stated Complaint: CHEST AND BACK PAIN TRAVEL OUTSIDE OF THE [place] IN LAST 30 DAYS: No - HPI Notes: 03/15/17 05:58 Patient is a 26-year-old female with a history of MS and diabetes, insulin- dependent, who presents ED complaining of epigastric abdominal pain that radiates around both sides to her back in about like fashion that began about 2 hours ago. Patient states that she has not tried to eat any food at this time, and does have associated nausea without vomiting. She denies any recent illness. She has not had any loose stool or diarrhea. She is urinating normally. Patient denies any . Denies any headache, fever, neck pain , URI, sore throat, chest pain, palpitations, syncope, cough, shortness of breath, wheeze, dyspnea, vomiting/diarrhea, dysuria, hematuria, loss of control of bowel or bladder, numbness/tingling, saddle anesthesia, muscle paralysis/ weakness, or rash. I have treated and performed a rapid initial assessment of this patient. A comprehensive ED assessment and evaluation of the patient, analysis of test results and completion of medical decision making process will be conducted by additional ED providers. - Related Data Allergies/Adverse Reactions: sulfamethoxazole [From Septra] Allergy (Mild, Verified 03/15/17 05:38) trimethoprim [From Septra] Allergy (Mild, Verified 03/15/17 05:38) Past Medical History - Past Medical History Cardiac Medical History: Denies: Hx Coronary Artery Disease, Hx Heart Attack, Hx Hypertension Pulmonary Medical History: Denies: Hx Asthma, Hx Bronchitis, Hx COPD, Hx Pneumonia Neurological Medical History: Denies: Hx Cerebrovascular Accident, Hx Seizures Renal/ Medical History: Denies: Hx Peritoneal Dialysis Musculoskeltal Medical History: Denies Hx Arthritis - Immunizations Hx Diphtheria, Pertussis, Tetanus Vaccination: Yes Physical Exam - Vital signs Vitals: Temp Pulse Resp BP Pulse Ox 98 F 97 24 H 130/85 H 100 03/15/17 05:28 12 05:28 12 05:28 03/15/17 05:28 03/15/17 05:28 - Respiratory Breath sounds: Normal - Cardiovascular Rhythm: Regular - Abdominal Tenderness: Tender - epigastric, limited exam Course - Vital Signs Vital signs: Temp Pulse Resp BP Pulse Ox 98 F 97 24 H 130/85 H 100 03/15/17 05:28 03/15/17 05:28 03/15/17 05:28 03/15/17 05:28 03/15/17 05:28
[2017-03-15 06:33] LABS: ABSOLUTE EOSINOPHILS # (AUTO) 0.2 10^3/uL (0.0-0.6); ABSOLUTE MONOCYTES (AUTO) 0.6 10^3/uL (0.1-1.4); ABSOLUTE NEUT (AUTO) 3.8 10^3/uL (1.7-8.2); BASOPHILS % (AUTO) 0.5 % (0-2); HEMOGLOBIN 12.5 g/dL (12.0-15.5); HGB HCT DIFFERENCE 0.5; LYMPHOCYTES % (AUTO) 17.7 % (13-45); MEAN CORPUSCULAR HEMOGLOBIN 29.4 pg (27.0-33.4); MEAN CORPUSCULAR HGB CONC 33.7 g/dL (32.0-36.0); MEAN CORPUSCULAR VOLUME 87 fl (80-97); MONOCYTES % (AUTO) 10.8 % (3-13); RED BLOOD COUNT 4.23 10^6/uL (3.72-5.28); RED CELL DISTRIBUTION WIDTH 13.4 % (11.5-14.0); WHITE BLOOD COUNT 5.6 10^3/uL (4.0-10.5)
[2017-03-15 06:35] LABS: APPEARANCE,URINE CLEAR; BILIRUBIN,URINE NEGATIVE (NEGATIVE); GLUCOSE, URINE NEGATIVE (NEGATIVE); KETONES,URINE NEGATIVE (NEGATIVE); LEUKOCYTE ESTERASE,URINE NEGATIVE (NEGATIVE); NITRITE,URINE NEGATIVE (NEGATIVE); PROTEIN,URINE NEGATIVE (NEGATIVE); URINE SPECIFIC GRAVITY 1.009; UROBILINOGEN,URINE NEGATIVE mg/dL (<2.0)
--- NOTE | 2017-03-15 06:46 | RADIOLOGY REPORT (SQ) ---
EXAM DESCRIPTION: CHEST PA/LAT COMPLETED DATE/TIME: 03/15/2017 6:35 am REASON FOR STUDY: epigastric pain COMPARISON: Chest x-ray 10/17/2016. EXAM PARAMETERS: NUMBER OF VIEWS: two views TECHNIQUE: Digital Frontal and Lateral radiographic views of the chest acquired. RADIATION DOSE: NA LIMITATIONS: none FINDINGS: LUNGS AND PLEURA: No consolidation, pneumothorax or pleural effusion. MEDIASTINUM AND HILAR STRUCTURES: No masses or contour abnormalities. HEART AND VASCULAR STRUCTURES: Heart normal size. No evidence for failure. BONES: No acute findings. HARDWARE: None in the chest. IMPRESSION: No acute radiographic finding in the chest. TECHNICAL DOCUMENTATION: JOB ID: [id number] [employer]- All Rights Reserved
[2017-03-15 06:47] LABS: ALANINE AMINOTRANSFERASE 87 U/L (9-52); ALBUMIN 4.3 g/dL (3.5-5.0); ALKALINE PHOSPHATASE 92 U/L (38-126); ANION GAP 13 (5-19); ASPARTATE AMINO TRANSFERASE 144 U/L (14-36); BILIRUBIN,DIRECT 0.6 mg/dL (0.0-0.4); BILIRUBIN,TOTAL 0.9 mg/dL (0.2-1.3); BLOOD UREA NITROGEN 8 mg/dL (7-20); CALCIUM 9.6 mg/dL (8.4-10.2); CARBON DIOXIDE 25 mmol/L (22-30); CHLORIDE 104 mmol/L (98-107); CREATININE RESULT 0.56 mg/dL (0.52-1.25); GLUCOSE 102 mg/dL (75-110); LIPASE 106.2 U/L (23-300); POTASSIUM 3.8 mmol/L (3.6-5.0); SODIUM 142.3 mmol/L (137-145); TOTAL PROTEIN 7.3 g/dL (6.3-8.2)
--- NOTE | 2017-03-15 06:51 | ER Document Report ---
ED GI/ - General Mode of Arrival: Ambulatory Information source: Patient TRAVEL OUTSIDE OF THE [place] IN LAST 30 DAYS: No <RONI BARNES - Last Filed: 03/15/17 07:21> <PRABHU SKELTON - Last Filed: 03/15/17 12:52> - General Chief Complaint: Upper Abdominal Pain Stated Complaint: CHEST AND BACK PAIN Time Seen by Provider: 03/15/17 06:00 Notes: Patient is a 26 year old female that presents to the emergency department today with complaints of right upper quadrant abdominal pain. Patient states she was awoken by the pain this morning at 0400. Patient states the pain radiates to her back. Patient had [employer] for dinner last night. Patient is an insulin dependent diabetic who has not been taking insulin for some time secondary to no PCP. (RONI BARNES) - Related Data Allergies/Adverse Reactions: sulfamethoxazole [From Septra] Allergy (Mild, Verified 03/15/17 05:38) trimethoprim [From Septra] Allergy (Mild, Verified 03/15/17 05:38) Past Medical History - General Information source: Patient - Social History Smoking Status: Never Smoker Cigarette use (# per day): No Frequency of alcohol use: None Drug Abuse: None Lives with: Family Family History: Reviewed & Not Pertinent Patient has suicidal ideation: No Patient has homicidal ideation: No Endocrine Medical History: Reports: Hx Diabetes Mellitus Type 1 - insulin Surgical Hx: Negative - Immunizations Hx Diphtheria, Pertussis, Tetanus Vaccination: Yes <RONI BARNES - Last Filed: 03/15/17 07:21> Review of Systems - Review of Systems Constitutional: No symptoms reported EENT: No symptoms reported Cardiovascular: No symptoms reported Respiratory: No symptoms reported Gastrointestinal: See HPI, Abdominal pain - RUQ Genitourinary: No symptoms reported Female Genitourinary: No symptoms reported Musculoskeletal: No symptoms reported Skin: No symptoms reported Hematologic/Lymphatic: No symptoms reported Neurological/Psychological: No symptoms reported -: Yes All other systems reviewed and negative <RONI BARNES - Last Filed: 03/15/17 07:21> Physical Exam - Vital signs Interpretation: Normal - General General appearance: Appears well, Alert - HEENT Head: Normocephalic, Atraumatic Eyes: Normal Pupils: PERRL - Respiratory Respiratory status: No respiratory distress Chest status: Nontender Breath sounds: Normal Chest palpation: Normal - Cardiovascular Rhythm: Regular Heart sounds: Normal auscultation Murmur: No - Abdominal Distension: No distension Bowel sounds: Hypoactive Tenderness: Tender - RUQ exquisitely tender Organomegaly: No organomegaly - Back Back: Normal, Nontender - Extremities General upper extremity: Normal inspection, Normal ROM. No: Edema General lower extremity: Normal inspection, Normal ROM. No: Edema - Neurological Neuro grossly intact: Yes Cognition: Normal Orientation: AAOx4 [place] Coma Scale Eye Opening: Spontaneous [place] Coma Scale Verbal: Oriented [place] Coma Scale Motor: Obeys Commands [place] Coma Scale Total: 15 Speech: Normal - Psychological Associated symptoms: Normal affect, Normal mood - Skin Skin Temperature: Warm Skin Moisture: Dry Skin Color: Normal <RONI BARNES - Last Filed: 03/15/17 07:21> - Vital signs Vitals: Temp Pulse Resp BP Pulse Ox 98 F 97 24 H 130/85 H 100 03/15/17 05:28 03/15/17 05:28 03/15/17 05:28 03/15/17 05:28 03/15/17 05:28 Course - Laboratory Result Diagrams: 03/15/17 06:14 03/15/17 06:14 <RONI BARNES - Last Filed: 03/15/17 07:21> - Laboratory Result Diagrams: 03/15/17 06:14 03/15/17 06:14 - Diagnostic Test Radiology reviewed: Image reviewed, Reports reviewed - Chest x-ray done is unremarkable. Gallbladder ultrasound shows contracted gallbladder without other abnormality. HIDA scan is normal. <PRABHU SKELTON - Last Filed: 03/15/17 12:52> - Re-evaluation Re-evalutation: 03/15/17 12:46 The patient's ultrasound and HIDA scan are normal. The white blood cell count is normal. The only abnormality noted is an elevation in the liver enzymes. On 10/17/16 the AST was 18 and the ALT was 28. Today the AST is 144 and the ALT is 87. On exam there is no skin sensitivity or rash. There is no CVA percussion tenderness. There is only some right upper quadrant tenderness. I discussed the findings at length with the patient. I have advised her that we will treat this as this it may be a duodenal irritation such as peptic ulcer disease developing. At this time a CT scan is probably not justified. She will be recommended to take Prilosec OTC, eat a bland diet continue, calorie count as she is on an insulin pump. (PRABHU SKELTON) - Vital Signs Vital signs: Temp Pulse Resp BP Pulse Ox 98.1 F 90 18 130/78 H 100 03/15/17 09:31 03/15/17 09:31 03/15/17 09:31 03/15/17 09:31 03/15/17 09:31 - Laboratory Laboratory results interpreted by me: 03/15/17 06:14 Direct Bilirubin 0.6 H AST 144 H ALT 87 H Discharge <RONI BARNES - Last Filed: 03/15/17 07:21> <PRABHU SKELTON - Last Filed: 03/15/17 12:52> - Discharge Clinical Impression: Right upper quadrant abdominal pain of unknown etiology, Elevated liver enzymes Condition: Stable Disposition: HOME, SELF-CARE Additional Instructions: Abdominal Pain: There are many causes of abdominal pain. Pain can mean a serious problem requiring surgery (such as appendicitis). It can also be an innocent problem that goes away on its own (such as a viral infection). Often, time must pass to determine the cause of pain. The physician does not feel that hospitalization is necessary, at present. Things may change within the next 24 hours. Call the doctor or come back for re- examination if any problems occur, such as: (1) Pain that becomes more severe, steady, or becomes concentrated in one specific area. Also, pain that is more severe with movement or coughing. (2) Vomiting that persists or becomes more frequent. (3) Blood in the vomitus, urine, or bowel movements. Blood in the stool may have a tarry or black appearance. (4) Shaking chills or fever greater than 100 degrees F. (5) The abdomen becomes more distended or swollen. (6) Bowel movements cease. (7) Failure to improve as expected. //////////////////////////////////////////////////////////////////////////////// //////////////////////////////////////////////////////////////////////////////// ////////////////// There is no clear explanation for your right upper quadrant abdominal pain. You have a slight elevation in your liver enzymes. Your gallbladder evaluation and ultrasound of your liver were all normal. This discomfort may be due to peptic ulcer disease. For now you should eat a bland diet and avoid spicy foods and citric acid type drinks. Take anti-acids between meals and at bedtime. Take omeprazole 20 mg(Prilosec OTC) once daily. Follow-up with the [facility] across from the [facility]. RETURN TO THE EMERGENCY ROOM IF ANY NEW OR WORSENING SYMPTOMS. Forms: Return to Work Referrals: [facility] [Provider Group] - Follow up in 1 week Scribe Attestation: 03/15/17 07:56 I personally performed the services described in the documentation, reviewed and edited the documentation which was dictated to the scribe in my presence, and it accurately records my words and actions. (PRABHU SKELTON) Scribe Documentation - Scribe Written by Thiago:: Thiago Brannon, 03/15/2017 0700 acting as scribe for :: Martin <RONI BARNES - Last Filed: 03/15/17 07:21>
[2017-03-15] MEDS ORDERED: MORPHINE SULFATE 10 MG/ML INJ IV ONE (06:53)
[2017-03-15] MEDS ORDERED: ONDANSETRON HCL INJ/PF 4 MG/2 ML SDV IV ONE (06:53)
[2017-03-15] MEDS ORDERED: KETOROLAC TROMETHAMINE INJ/PF 30 MG/1 ML SDV IV ONE (07:07)
--- NOTE | 2017-03-15 07:47 | RADIOLOGY REPORT (SQ) ---
EXAM DESCRIPTION: U/S ABDOMEN LIMITED W/O DOP COMPLETED DATE/TIME: 03/15/2017 7:34 am REASON FOR STUDY: RUQ abd pain COMPARISON: None. TECHNIQUE: Grayscale images acquired of the right upper quadrant and recorded on PACS. Additional se lected color Doppler and spectral images recorded. LIMITATIONS: Acoustic interference from fat or from air in the bowel. FINDINGS: PANCREAS: Partially obscured by overlying bowel gas. The visualized pancreas is unremarka ble. LIVER: Measures 16 cm Echotexture normal. LIVER VASCULATURE: Normal directional flow of the main portal vein. GALLBLADDER: Contracted gallbladder. No stones. Normal wall thickness. No pericholecystic fluid. ULTRASOUND-DETECTED WHEELER'S SIGN: Negative. INTRAHEPATIC DUCTS AND COMMON DUCT: CBD and intrahepatic ducts normal caliber. INFERIOR VENA CAVA: Patent. AORTA: No aneurysm in the visualized segments. RIGHT KIDNEY: Measures 9.6 cm in length. Normal echogenicity. No hydronephrosis. No calcifications. PERITONEAL CAVITY AND RIGHT PLEURAL SPACE: No ascites or effusion. IMPRESSION: Contracted gallbladder with no evidence for cholelithiasis. No biliary ductal dilation. TECHNICAL DOCUMENTATION: JOB ID: [id number] 2010 [employer]- All Rights Reserved
[2017-03-15] MEDS ORDERED: MAG HYDROX/AL HYDROX/SIMETH SUSP 30 ML UDCUP PO ONE (07:56)
[2017-03-15] MEDS ORDERED: LIDOCAINE 2% VISCOUS SOLN 20 ML UDCUP PO ONE (07:56)
[2017-03-15] MEDS ORDERED: MORPHINE SULFATE 10 MG/ML INJ ONE (11:14)
--- NOTE | 2017-03-15 12:15 | RADIOLOGY REPORT (SQ) ---
EXAM DESCRIPTION: NM HIDA SCAN COMPLETED DATE/TIME: 03/15/2017 12:07 pm REASON FOR STUDY: RUQ pain, contracted GB COMPARISON: None. RADIONUCLIDE AND DOSE: DOSAGE RADIONUCLIDE: 5.44 millicuries Tc99m Mebrofenin. DOSAGE MORPHINE: 3 mg The route of agent administration: Intravenous TECHNIQUE: Serial imaging right upper quadrant up to 60 minutes following injection of radionuclide. Patient imaged AP and Right Lateral. LIMITATIONS: None. FINDINGS: LIVER: Normal visualization without areas of photopenia. INTRA-HEPATIC BILE DUCTS: Temporal visualization normal. No dilatation. COMMON BILE DUCT: Normal without dilatation or delayed visualization. GALLBLADDER: Delayed visualization but normal appearance after administration of morphine. OTHER: No other significant finding. IMPRESSION: NORMAL STUDY WITHOUT CYSTIC OR COMMON DUCT OBSTRUCTION. TECHNICAL DOCUMENTATION: JOB ID: [id number] [employer]- All Rights Reserved
[2017-03-15 13:03] VITALS: BP 118/87
== END 2017-03-15 13:01 | disposition home or self-care (01) ==
LOC: ER 05:23
DX: K82.0 Obstruction of gallbladder (principal); R10.11 Right upper quadrant pain; R74.8 Abnormal levels of other serum enzymes; E10.9 Type 1 diabetes mellitus without complications; Z96.41 Presence of insulin pump (external) (internal); T38.3X6A Underdosing of insulin and oral hypoglycemic [antidiabetic] drugs, initial encounter; Z91.128 Patient's intentional underdosing of medication regimen for other reason; Z91.14 Patient's other noncompliance with medication regimen; Z88.1 Allergy status to other antibiotic agents
CPT/HCPCS: 99284; 96374; 96375; 36415; 83690; 85025; 81025; 80053; 81001; 71020; 76705; 78226; A9537; J3490 ×2; J1885; J2270; Q9969